=== PATIENT | female | born 1950 | race Caucasian/White ===

== ENCOUNTER → 2017-08-07 | Outpatient (REF) | payer OTHER ==
[2017-08-10 00:07] LABS: HPV HYBRID CAPTURE II Negative (Negative)
== END ==
LOC: M SFHCWAGY 10:16
DX: Z12.4 Encounter for screening for malignant neoplasm of cervix (principal)
CPT/HCPCS: G0123

== ENCOUNTER → 2017-08-07 | Outpatient (CLI) | payer OTHER | LOC: M WHC 09:41 | DX: Z12.31 Encounter for screening mammogram for malignant neoplasm of breast (principal); Z78.0 Asymptomatic menopausal state; Z98.890 Other specified postprocedural states; Z12.4 Encounter for screening for malignant neoplasm of cervix | CPT/HCPCS: 77067; G0123 ==

== ENCOUNTER → 2018-08-08 | Outpatient (CLI) | payer MEDICARE ==
--- NOTE | 2018-08-08 10:37 | REPMRS ---
Patient History The patient states she had a clinical breast exam in 07/30 Patient is postmenopausal. Family history of prostate cancer at age 50 or over in father. Benign excisional biopsy of the left breast. Digital Woman Screen Mammo: August 08, 2018 - Exam #: [id number] Bilateral CC and MLO view(s) were taken. Technologist: Basia Perez, Technologist Prior study comparison: August 07, 2017, digital woman screen mammo performed at [facility]. February 29, 2016, digital woman screen mammo performed at [facility]. March 01, 2015, digital woman screen mammo performed at [facility]. FINDINGS: There are scattered fibroglandular densities. There has been no change in the appearance of the mammogram from the prior studies. There is a mild amount of scattered fibroglandular density which is fairly symmetric. There is no interval development of dominant mass, architectural distortion, or clustered microcalcification suggestive of malignancy. 3-D tomosynthesis shows no additional findings. Assessment: BI-RADS/ACR category 1 mammogram. Negative Mammogram. Recommendation Routine screening mammogram of both breasts in 1 year (for women over age 40). This patient's Lifetime Breast Cancer RIsk is estimated at 5.4 %. This mammogram was interpreted with the aid of an FDA-approved computer-aided dectection system. Electronically Signed By: Raul Gray MD 08/08/18 1037
== END ==
LOC: M WHC 09:47
PROVIDERS: ATTEND Nurse Practitioner Women's Health
DX: Z12.31 Encounter for screening mammogram for malignant neoplasm of breast (principal); Z78.0 Asymptomatic menopausal state; Z86.018 Personal history of other benign neoplasm
CPT/HCPCS: 77063; 77067; G0463

== ENCOUNTER → 2018-09-03 | Outpatient (CLI) | payer MEDICARE ==
[2018-09-03 16:05] LABS: BASO # 0.1 10^3/uL (0.0-0.2); BASO % 0.9 % (0.0-1.0); EOS # 0.3 10^3/uL (0.0-0.50); EOS % 4.5 % (0.0-3.0); HEMATOCRIT 45.2 % (36.0-47.0); HEMOGLOBIN 14.8 g/dl (12.0-15.5); LYMPH # 2.9 10^3/uL (1.5-4.5); LYMPH % 38.8 % (24.0-44.0); MEAN CORPUSCULAR HEMOGLOBIN 30.9 pg (27.0-33.0); MEAN CORPUSCULAR HGB CONC 32.7 g/dl (32.0-36.5); MEAN CORPUSCULAR VOLUME 94.4 fl (80.0-96.0); MONO # 0.7 10^3/uL (0.0-0.8); MONO % 9.5 % (0.0-5.0); NEUTROPHILS # 3.5 10^3/uL (1.8-7.7); PLATELET COUNT, AUTOMATED 344 10^3/uL (150-450); RED BLOOD COUNT 4.79 10^6/uL (4.00-5.40); WHITE BLOOD COUNT 7.6 10^3/uL (4.0-10.0)
[2018-09-03 16:26] LABS: ALBUMIN 3.8 GM/DL (3.2-5.2); ALT/SGPT 29 U/L (12-78); BILIRUBIN,DIRECT < 0.1 MG/DL (0.0-0.2); BILIRUBIN,TOTAL 0.3 MG/DL (0.2-1.0); BLOOD UREA NITROGEN 15 MG/DL (7-18); CALCIUM LEVEL 9.1 MG/DL (8.8-10.2); CARBON DIOXIDE LEVEL 30 MEQ/L (21-32); CHLORIDE LEVEL 104 MEQ/L (98-107); CREATININE FOR GFR 0.77 MG/DL (0.55-1.30); GLOMERULAR FILTRATION RATE > 60.0 (>45); GLUCOSE, FASTING 89 MG/DL (70-100); PHOSPHORUS LEVEL 4.1 MG/DL (2.5-4.9); RHEUMATOID FACTOR QUANT < 10.0 IU/ML (<15.0); SODIUM LEVEL 140 MEQ/L (136-145); TOTAL PROTEIN 6.8 GM/DL (6.4-8.2)
[2018-09-03 16:48] LABS: ERYTHROCYTE SEDIMENTATION RATE 8 mm/hr (0-30)
[2018-09-05 14:21] LABS: ANTINUCLEAR ANTIBODIES DIRECT Negative (Negative); SJOGREN'S ANTI SS-A 0.2 AI (0.0-0.9); SJOGREN'S ANTI SS-B <0.2 AI (0.0-0.9)
== END ==
LOC: M LAB 15:35
PROVIDERS: ATTEND Nurse Practitioner
DX: R21 Rash and other nonspecific skin eruption (principal)

== ENCOUNTER → 2020-09-01 | Outpatient (CLI) | payer MEDICARE ==
--- NOTE | 2020-09-01 13:46 | REPMRS ---
Patient History The patient states she has not had a clinical breast exam in over a year. Family history of prostate cancer at age 50 or over in father. Benign excisional biopsy of the left breast. Digital Woman Screen Mammo: September 01, 2020 - Exam #: [id number] Bilateral CC and MLO view(s) were taken. Technologist: Basia Perez, Technologist Prior study comparison: August 08, 2018, bilateral digital woman screen mammo performed at [facility]. August 07, 2017, digital woman screen mammo performed at [facility]. February 29, 2016, digital woman screen mammo performed at [facility]. FINDINGS: There are scattered fibroglandular densities. The Volpara volumetric breast density category is:B. There has been no change in the appearance of the mammogram from the prior studies. There is a mild amount of scattered fibroglandular density which is fairly symmetric. There is no interval development of dominant mass, architectural distortion, or grouped microcalcification suggestive of malignancy. 3-D tomosynthesis shows no additional findings. Assessment: BI-RADS/ACR category 1 mammogram. Negative Mammogram. Recommendation Routine screening mammogram of both breasts in 1 year (for women over age 40). This patient's [facility] Lifetime Breast Cancer Risk is estimated at 4.8 %. This mammogram was interpreted with the aid of an FDA-approved computer-aided dectection system. Electronically Signed By: Raul Gray MD 09/01/20 8801
== END ==
LOC: M WHC 10:49
PROVIDERS: ATTEND Internal Medicine
DX: Z12.31 Encounter for screening mammogram for malignant neoplasm of breast (principal)

== ENCOUNTER → 2021-10-12 | Outpatient (CLI) | payer MEDICARE | LOC: M WHC 10:43 | PROVIDERS: ATTEND Internal Medicine | DX: Z12.31 Encounter for screening mammogram for malignant neoplasm of breast (principal) ==

== ENCOUNTER → 2022-09-08 | Outpatient (REF) | payer OTHER ==
[~2022-09-08] MED LIST: BACTDSTA; DIAZ5TAB; ESSE250T PO; MECL1TAB31 PO; ONDA4TAB6 PO; PARO40TA2; TRIH2TAB3
== END ==
LOC: M LAB REF 18:00
PROVIDERS: ATTEND Nurse Practitioner Family
DX: N39.0 Urinary tract infection, site not specified (principal)

== ENCOUNTER 2022-09-09 18:21 | Emergency (ER) | payer OTHER, MEDICARE ==
[~2022-09-09] VITALS: Ht 165.1 cm; Wt 57.9 kg
[2022-09-09] MEDS ORDERED: PARO40TA2 (18:38)
[2022-09-09] MEDS ORDERED: TRIH2TAB3 (18:38)
[2022-09-09] MEDS ORDERED: DIAZ5TAB (18:38)
[2022-09-09] MEDS ORDERED: BACTDSTA (18:38)
[2022-09-09 19:32] LABS: BASO % 0.2 % (0.0-1.0); HEMATOCRIT 43.5 % (36.0-47.0); HEMOGLOBIN 14.5 g/dl (12.0-15.5); LYMPH # 0.2 10^3/uL (1.5-5.0); LYMPH % 2.5 % (24.0-44.0); MEAN CORPUSCULAR HEMOGLOBIN 31.1 pg (27.0-33.0); MEAN CORPUSCULAR HGB CONC 33.3 g/dl (32.0-36.5); MEAN CORPUSCULAR VOLUME 93.3 fl (80.0-96.0); MONO # 0.2 10^3/uL (0.0-0.8); MONO % 2.5 % (2.0-8.0); NEUTROPHILS # 7.6 10^3/uL (1.5-8.5); NEUTROPHILS % 94.3 % (36.0-66.0); PLATELET COUNT, AUTOMATED 246 10^3/uL (150-450); RED BLOOD COUNT 4.66 10^6/uL (4.00-5.40)
[2022-09-09 19:52] LABS: LIPASE 22 U/L (12-53)
[2022-09-09 20:02] LABS: ALBUMIN 3.7 G/DL (3.2-5.2); ALKALINE PHOSPHATASE 66 U/L (46-116); ALT/SGPT 19 U/L (7.0-40); AST/SGOT 25 U/L (<34); BILIRUBIN,DIRECT 0.2 MG/DL (<0.4); BILIRUBIN,TOTAL 0.7 MG/DL (0.3-1.2); MAGNESIUM LEVEL 1.5 MG/DL (1.8-2.4); THYROID STIMULATING HORMONE 0.827 uIU/ML (0.55-4.78); TOTAL PROTEIN 6.6 G/DL (5.7-8.2)
[2022-09-09] MEDS ORDERED: NS 1,000 ML IV ONE (20:05)
[2022-09-09] MEDS ORDERED: ISOVUE-370 76% 100ML VIAL As Ordered ONE (20:06)
[2022-09-09] MEDS ORDERED: ONDANSETRON 4MG 2ML VIAL IV ONE (20:10)
[2022-09-09] MEDS ORDERED: MECLIZINE 25 MG TABLET PO ONE (20:10)
[2022-09-09 20:20] LABS: CK-MB VALUE MASS < 1.0 NG/ML (<3.6)
[2022-09-09 20:22] LABS: CPK CREATINE PHOSPHOKINASE 104 U/L (34-145); MB/CK RELATIVE INDEX 0.96 (< OR =4)
[2022-09-09 21:05] LABS: CK-MB VALUE MASS < 1.0 NG/ML (<3.6)
[2022-09-09 21:08] LABS: CPK CREATINE PHOSPHOKINASE 84 U/L (34-145); MB/CK RELATIVE INDEX 1.19 (< OR =4)
[2022-09-10] MEDS ORDERED: MECL1TAB31 PO (01:10)
[2022-09-10] MEDS ORDERED: ONDA4TAB6 PO (01:10)
[2022-09-10 01:12] VITALS: BP 108/53
[2022-09-10] MEDS ORDERED: ESSE250T PO (01:29)
== END 2022-09-10 01:37 | disposition home or self-care (01) ==
LOC: M ED 18:21
DX: R11.2 Nausea with vomiting, unspecified (principal); E83.42 Hypomagnesemia; R94.02 Abnormal brain scan; R26.9 Unspecified abnormalities of gait and mobility; I44.4 Left anterior fascicular block; I42.2 Other hypertrophic cardiomyopathy; F41.9 Anxiety disorder, unspecified; F32.A Depression, unspecified; Z79.83 Long term (current) use of bisphosphonates; Z79.899 Other long term (current) drug therapy
CPT/HCPCS: 70450; 70496; 70498; 70551; 80047; 80076; 81001; 82550; 82553; 83690; 83735; 84443; 85025; 87086; 93005; 96361; 96374; 99284; J2405; Q9967

== ENCOUNTER 2022-09-24 14:55 | Emergency (ER) | payer OTHER, MEDICARE ==
[~2022-09-24] VITALS: Ht 165.1 cm; Wt 56.6 kg
[2022-09-24] MEDS ORDERED: METOCLOPRAMIDE INJ 10MG/2ML VIAL IV ONE (17:10)
[2022-09-24] MEDS ORDERED: MECLIZINE 25 MG TABLET PO ONE (17:10)
[2022-09-24] MEDS ORDERED: NS 1,000 ML IV ONE (17:10)
[2022-09-24 17:33] LABS: BASO % 0.2 % (0.0-1.0); HEMATOCRIT 40.2 % (36.0-47.0); HEMOGLOBIN 13.5 g/dl (12.0-15.5); LYMPH # 0.3 10^3/uL (1.5-5.0); LYMPH % 3.7 % (24.0-44.0); MEAN CORPUSCULAR HEMOGLOBIN 31.4 pg (27.0-33.0); MEAN CORPUSCULAR HGB CONC 33.6 g/dl (32.0-36.5); MEAN CORPUSCULAR VOLUME 93.5 fl (80.0-96.0); MONO # 0.4 10^3/uL (0.0-0.8); MONO % 4.9 % (2.0-8.0); NEUTROPHILS # 7.8 10^3/uL (1.5-8.5); NEUTROPHILS % 90.9 % (36.0-66.0); WHITE BLOOD COUNT 8.6 10^3/uL (4.0-10.0)
[2022-09-24 17:54] LABS: LIPASE 27 U/L (12-53)
[2022-09-24 17:56] LABS: ALBUMIN 3.6 G/DL (3.2-5.2); ALKALINE PHOSPHATASE 55 U/L (46-116); ALT/SGPT 17 U/L (7.0-40); AST/SGOT 24 U/L (<34); BILIRUBIN,TOTAL 0.7 MG/DL (0.3-1.2); BLOOD UREA NITROGEN 18 MG/DL (9-23); CALCIUM LEVEL 8.6 MG/DL (8.3-10.6); CARBON DIOXIDE LEVEL 25 MMOL/L (20-31); CHLORIDE LEVEL 105 MMOL/L (98-107); CK-MB VALUE MASS < 1.0 NG/ML (<3.6); CREATININE FOR GFR 0.93 MG/DL (0.55-1.30); GLOMERULAR FILTRATION RATE > 60.0 (>39); GLUCOSE, FASTING 96 MG/DL (74-106); MAGNESIUM LEVEL 1.6 MG/DL (1.8-2.4); POTASSIUM SERUM 3.8 MMOL/L (3.5-5.1); SODIUM LEVEL 138 MMOL/L (136-145); TOTAL PROTEIN 6.3 G/DL (5.7-8.2)
[2022-09-24 17:57] LABS: THYROID STIMULATING HORMONE 0.716 uIU/ML (0.55-4.78); THYROXINE (T4) 7.6 UG/DL (4.5-10.9)
[2022-09-24 17:58] LABS: FREE THYROXINE INDEX 2.9 % (1.3-4.8); T UPTAKE 38.1 % (22.5-37.0)
[2022-09-24 18:00] LABS: CPK CREATINE PHOSPHOKINASE 57 U/L (34-145); MB/CK RELATIVE INDEX 1.75 (< OR =4)
[2022-09-24] MEDS ORDERED: ISOVUE-370 76% 100ML VIAL As Ordered ONE (18:13)
[2022-09-24] MEDS ORDERED: MECL1TAB31 PO (20:18)
[2022-09-24] MEDS ORDERED: MACR100C43 PO (20:18)
[2022-09-24] MEDS ORDERED: NITROFURANTOIN (MACROBID) 100 MG CAP PO ONE (20:25)
[2022-09-24] MEDS ORDERED: ONDANSETRON 4MG ORAL DISINTEGRATING TAB PO ONE (20:45)
[2022-09-24] MEDS ORDERED: PROMETHAZINE 25MG SUPP PR ONE (21:00)
[2022-09-24 21:24] VITALS: BP 112/60
[2022-09-24] MEDS ORDERED: PROM25SU3 PR (21:49)
[2022-09-24] MEDS ORDERED: cefTRIAXone SOD 1GM VIAL IM ONE (21:50)
[2022-09-24] MEDS ORDERED: LIDOCAINE 1% SDV 5ML VIAL DILUENT ONE (21:50)
== END 2022-09-24 22:17 | disposition home or self-care (01) ==
LOC: M ED 14:55
DX: N39.0 Urinary tract infection, site not specified (principal); M79.651 Pain in right thigh; E61.2 Magnesium deficiency; I44.7 Left bundle-branch block, unspecified; F41.9 Anxiety disorder, unspecified; Z79.83 Long term (current) use of bisphosphonates; Z79.899 Other long term (current) drug therapy
CPT/HCPCS: 70450; 73552; 74177; 80053; 81001; 82550; 82553; 83690; 83735; 84436; 84443; 84479; 85025; 87086; 93005; 93970; 96361; 96372; 96374; 99284; J0696; J2765; Q9967

== ENCOUNTER → 2022-11-23 | Outpatient (REF) | payer MEDICARE, OTHER ==
[~2022-11-23] MED LIST changes: +MACR100C43 PO; +PROM25SU3 PR
== END ==
LOC: M LAB REF 16:20
PROVIDERS: ATTEND Internal Medicine
DX: R42 Dizziness and giddiness (principal)

== ENCOUNTER 2023-10-17 12:39 | Emergency (ER) | payer MEDICARE ==
[~2023-10-17] VITALS: Ht 165.1 cm; Wt 56.8 kg
[2023-10-17 12:39] VITALS: BP 135/66; TEMP 96.9; O2SAT 97
[~2023-10-17 12:39] MED LIST changes: +MECL-209 PO; -MECL1TAB31 PO
[2023-10-17] MEDS: ACETAMINOPHEN 325 MG TAB PO ONE (13:41)
== END 2023-10-17 14:30 | disposition home or self-care (01) ==
LOC: M ED 12:39
DX: S76.012A Strain of muscle, fascia and tendon of left hip, initial encounter (principal); M79.662 Pain in left lower leg; F32.A Depression, unspecified; F41.9 Anxiety disorder, unspecified; Z79.83 Long term (current) use of bisphosphonates; Z79.899 Other long term (current) drug therapy; Y92.9 Unspecified place or not applicable; Y93.9 Activity, unspecified; Y99.9 Unspecified external cause status

== ENCOUNTER 2024-01-10 09:04 | Day surgery (SDC) | payer MEDICARE ==
[~2024-01-10] VITALS: Ht 165.1 cm; Wt 54.5 kg
[~2024-01-10 09:04] MED LIST changes: +CALC500C16 PO; -DIAZ5TAB; +DIAZ5TAB PO; +NS 1,000 ML IV ONE; +ONDA-282 PO; -ONDA4TAB6 PO; -PARO40TA2; +PARO40TA2 PO; -TRIH2TAB3; +TRIH2TAB3 PO
[2024-01-10] MEDS ORDERED: propofoL 200 MG/20 ML VIAL As Ordered ONE (10:02)
[2024-01-10 10:35] VITALS: TEMP 97.5
[2024-01-10 10:55] VITALS: BP 100/51; O2SAT 93
== END 2024-01-10 11:20 | disposition home or self-care (01) ==
LOC: M OPP 09:04
PROVIDERS: ATTEND Surgery
DX: Z12.11 Encounter for screening for malignant neoplasm of colon (principal); Z87.891 Personal history of nicotine dependence; Z79.899 Other long term (current) drug therapy

== ENCOUNTER → 2024-07-16 | Outpatient (CLI) | payer MEDICARE ==
[~2024-07-16] MED LIST changes: -NS 1,000 ML IV ONE
== END ==
LOC: M WHC 10:45
PROVIDERS: ATTEND Internal Medicine
DX: Z12.31 Encounter for screening mammogram for malignant neoplasm of breast (principal); R92.333 Mammographic heterogeneous density, bilateral breasts

== ENCOUNTER → 2025-02-06 | Outpatient (REF) | payer MEDICARE ==
[~2025-02-06] MED LIST changes: -ESSE250T PO; +MAGN250T17 PO
== END ==
LOC: M LAB REF 12:24
PROVIDERS: ATTEND Internal Medicine
DX: G31.84 Mild cognitive impairment of uncertain or unknown etiology (principal)

== ENCOUNTER → 2025-04-23 | Outpatient (CLI) | payer MEDICARE | LOC: M PLARAD 11:09 | PROVIDERS: ATTEND Internal Medicine | DX: R41.89 Other symptoms and signs involving cognitive functions and awareness (principal); R90.82 White matter disease, unspecified ==